=== PATIENT | male | born 1955 | race Two or more races ===

== ENCOUNTER → 2024-02-08 | Outpatient (CLI) | payer OTHER ==
[~2024-02-08] VITALS: Ht 177.8 cm; Wt 87.1 kg
[2024-02-08] MEDS: ADENOSINE 73 MG in GIVE UN-DILUTED 0 ML IV STA (09:28)
--- NOTE | 2024-02-08 14:13 | DVHSR ---
APPROVED REPORT Exam: Nuclear Stress Test BMI: 0 Stress Test Details HR Max Heart Rate (APMHR): 151.751809 bpm Target HR (85% APMHR): 128.883600 bpm BP ECG Stress ECG Conclusion Resting images shows near homogeneous uptake of radioactive tracer throughout the myocardium without evidence of myocardial infarction. Stress images shows near homogeneous uptake of radioactive tracer throughout the myocardium without e vidence of myocardial ischemia. Mildly reduced left ventricular systolic function at 48%. Impression: Mildly reduced left ventricular systolic function, negative stress test for ischemia, lo w risk study NM EXAM: Myocardial Perfusion REST/STRESS Imaging Protocol: Rest Tc-99m/Stress Tc-99m 1 day Resting Data Rest SPECT myocardial perfusion imaging was performed in supine position 60 minutes following the int ravenous injection of 13.5 mCi of Tc-99m Sestamibi. Time of rest injection: 0820 Time of rest imagin Administration Route: IV Administration Site: Right Arm Pharmacologic Stress Pharmacologic stress test was performed by injecting Adenosine mg IV push followed by the intravenou s injection of 33 mCi of Tc-99m Sestamibi. Time of stress injection: 0928 Time of stress imagin Administration Route: IV Administration Site: Right Arm Gated Stress SPECT was performed 60 minutes after stress injection. The images were gated to evaluate regional wall motion and calculate left ventricular ejection fracti on. Stress only was performed in the Supine position. Nuclear Conclusion ECG Findings: negative for ischemia Clinical Findings: negative for ischemia Nuclear Findings: negative for ischemia Exercise Capacity: not assessed Left Ventricular Function: abnormal Risk Study: low Resting images shows near homogeneous uptake of radioactive tracer throughout the myocardium without evidence of myocardial infarction. Stress images shows near homogeneous uptake of radioactive tracer throughout the myocardium without e vidence of myocardial ischemia. Mildly reduced left ventricular systolic function at 48%. Impression: Mildly reduced left ventricular systolic function, negative stress test for ischemia, lo w risk study
== END | disposition home or self-care (01) ==
LOC: XYW 06:36
PROVIDERS: ATTEND Specialist
CPT/HCPCS: 78452 ×2; 93017 ×2; A9500; J0153 ×2